=== PATIENT | female | born 1995 | race African-American/Black ===

== ENCOUNTER 2017-07-26 15:56 | Outpatient (CLI) | payer OTHER | END 2017-07-26 19:15 | disposition home or self-care (01) | LOC: RAD 15:56 | DX: Z34.82 Encounter for supervision of other normal pregnancy, second trimester (principal); N91.1 Secondary amenorrhea; R10.2 Pelvic and perineal pain | CPT/HCPCS: 36415; 84702 ==

== ENCOUNTER 2019-08-15 01:32 | Outpatient (CLI) | payer OTHER | END 2019-08-15 01:45 | disposition short-term general hospital (02) | LOC: AMB 01:32 | DX: S01.21XA Laceration without foreign body of nose, initial encounter (principal); V89.2XXA Person injured in unspecified motor-vehicle accident, traffic, initial encounter; Y93.89 Activity, other specified; Y92.413 State road as the place of occurrence of the external cause | CPT/HCPCS: A0425; A0427 ==

== ENCOUNTER 2019-08-15 01:45 | Emergency (ER) | payer OTHER ==
[~2019-08-15] VITALS: Ht 152.4 cm; Wt 63.0 kg
[2019-08-15 04:01] VITALS: BP 118/67; TEMP 97
== END 2019-08-15 04:04 | disposition home or self-care (01) ==
LOC: ED 01:56
PROC: 0HQ1XZZ Repair Face Skin, External Approach (ICD-10-PCS; principal; 2019-08-15)
DX: S02.2XXA Fracture of nasal bones, initial encounter for closed fracture (principal); S01.21XA Laceration without foreign body of nose, initial encounter; V49.3XXA Car occupant (driver) (passenger) injured in unspecified nontraffic accident, initial encounter
CPT/HCPCS: 96372; 99283; J0696